=== PATIENT | female | born 1950 | race Caucasian/White ===

== ENCOUNTER 2024-07-29 15:41 | Emergency (ER) | payer OTHER, SELFPAY ==
--- NOTE | ~2024-07-29 | XR_ITS ---
EXAMINATION: XR chest 2V DATE: 07/29/2024 17:21 INDICATION: Productive cough TECHNIQUE: frontal and lateral views of the chest were obtained. COMPARISON: Chest radiograph dated 11/06/2012 FINDINGS: Pulmonary vascular congestion without leonard pulmonary edema. No focal airspace opacities, ulnar edema , pleural effusion or pneumothorax. Mild cardiomegaly. Dual lead pacemaker seen with leads projecting over the expected locations of the right atrium and right ventricle. Upper thoracic levoscoliosis. C holecystectomy clips in the right upper quadrant. IMPRESSION: 1. Cardiomegaly with pulmonary vascular congestion but without leonard pulmonary edema. Reviewed, dictated and finalized at location A. [facility]
[2024-07-29 15:54] VITALS: BP 160/95; PULSE 108; RESP 16; TEMP 36; O2SAT 97
--- NOTE | 2024-07-29 16:32 | ED_ITS ---
HPI - URI/Sore Throat General Chief Complaint: Upper Respiratory Infection Stated Complaint: Cough/Sinus Time Seen by Provider: 07/29/24 16:32 Source: patient, RN notes reviewed and old records reviewed Mode of arrival: ambulatory Limitations: no limitations History of Present Illness HPI Narrative: Patient presents with 2 week history of productive cough that is getting worse. She reports associated fatigue that she also feels is getting worse. She denies any shortness of breath. She reports that she has been taking multiple [id number] preparations with minimal relief. She denies any injury or trauma. She voices no other concerns or complaints at this time. Related Data Home Medications ?Medication ?Instructions ?Recorded ?Confirmed ?Last Taken ?Type amlodipine 2.5 mg tablet 2.5 mg PO DAILY 06/11/19 11/18/20 Unknown History aspirin 81 mg chewable tablet 81 mg PO DAILY 06/11/19 08/07/20 Unknown History cholecalciferol (vitamin D3) 125 5,000 unit PO DAILY 06/11/19 11/18/20 Unknown History mcg (5,000 unit) tablet (Vitamin D3) icosapent ethyl 1 gram capsule 2 g PO BID 06/11/19 11/18/20 Unknown History (Vascepa) lisinopril 40 mg tablet (Zestril) 40 mg PO DAILY 06/11/19 11/18/20 Unknown History lorazepam 1 mg tablet 1 mg PO TID PRN Anxiety 06/11/19 08/07/20 Unknown History vitamin E 268 mg (400 unit) capsule 400 unit PO DAILY 06/11/19 11/18/20 Unknown History apixaban 5 mg tablet (Eliquis) 5 mg PO BID 11/18/20 11/18/20 Unknown History icosapent ethyl 1 gram capsule 2 g PO BID 11/18/20 11/18/20 Unknown History (Vascepa) metoprolol succinate 50 mg 50 mg PO DAILY 11/18/20 11/18/20 Unknown History tablet,extended release 24 hr pantoprazole 40 mg tablet,delayed 40 mg PO QAM 11/18/20 11/18/20 Unknown History release Allergies Allergy/AdvReac Type Severity Reaction Status Date / Time alprazolam AdvReac Severe HURTS Verified 11/18/20 14:10 STOMACH codeine AdvReac Unknown HURT Verified 03/31/21 14:10 STOMACH PENTAZOCINE LACTATE AdvReac Severe HALUCINATIO Uncoded 08/07/20 14:22 NS Review of Systems Review of Systems: All systems reviewed & are unremarkable except as noted in HPI and below Constitutional: Constitutional: Reports no additional constitutional complaints ENT: Reports system reviewed and no additional complaints, except as documented Cardiovascular: Cardiovascular: Reports no additional cardiovascular complaints Respiratory: Respiratory: Reports no additional respiratory complaints, Reports chest congestion, Reports cough and Reports pain on inspiration Gastrointestinal: Gastrointestinal: Reports no additional gastrointestinal complaints [facility] Past Medical History Medical History Pacemaker Social History Social History Smoking status: Never smoker Alcohol intake: never Substance use: never Comments At the time of my signature, I reviewed and agree with the nursing past medical, surgical, social, and family history. There is no relevant family his tory pertinent to the patient complaint. Exam Const: General: cooperative, no acute distress, alert and awake Orientation/consciousness: oriented to person, oriented to place and oriented to time Limitations: no limitations HENMT: Head: normal to inspection Mouth: Yes moist mucous membranes Resp: Effort & Inspection: normal respiratory effort and able to speak in complete sentences Auscultation: crackles bilateral at the base, no rales, no rhonchi and no wheezes Cardio: Palpation: normal PMI Rate: regular rate Rhythm: regular rhythm Heart sounds: S1 normal heart sound present and S2 normal heart sound present Neuro: General: oriented to person, oriented to place and oriented to time Cranial nerves: Yes CN's II-XII intact bilaterally Psych: Appearance: grossly normal Thought process: Normal thought process present Insight: Good insight present (Psych) Judgement: Good judgement present (Psych) Course Course Level of Care: Express Care Visit Vital Signs Vital signs: Vital Signs Temperature 96.8 F L 07/29/24 15:54 Pulse Rate 108 H 07/29/24 15:54 Respiratory Rate 16 07/29/24 15:54 Blood Pressure 160/95 H 07/29/24 15:54 Pulse Oximetry 97 07/29/24 15:54 Oxygen Delivery Room Air 07/29/24 15:54 Temperature 96.8 F L 12/09/24 15:54 Pulse Rate 108 H 07/29/24 15:54 Respiratory Rate 16 07/29/24 15:54 Blood Pressure 160/95 H 07/29/24 15:54 Pulse Oximetry 97 07/29/24 15:54 Oxygen Delivery Room Air 07/29/24 15:54 Reviewed MDM - URI/Sore Throat MDM Narrative Medical decision making narrative: Discussed x-ray findings with patient. Suggested that she call her grinder hardboard to see if he would like to adjust any of her medications. She is advised to go to the emergency department with any new or worsening symptoms. Discharge instructions reviewed with patient, as well as provided in writing per nursing staff. The instructions also include specific and strict return/GO TO THE ER as well as f/u information. All questions have been answered, and the patient deny any further questions with discharge and discharge plan. Some parts of this dictation were generated by voice recognition software and may contain typographical and/or grammatical inaccuracies. Differential Diagnosis Differential diagnosis: Likely upper respiratory infection Medical Records Attestation: I reviewed the patient's medical records. Imaging Data Attestation: I personally reviewed and interpreted this imaging study as follows: My impression: [facility] Radiologist's impression: [facility] [address] [place] [address] XRay Report Signed Patient: Shira Denton : 1950 MR#: [id number] Age: 74 Acct:[id number] Loc: [facility] ADM Date: 07/29/24Attending Dr: Ordering Physician: Angeles Lux FNP Date of Service: 07/29/24 Procedure(s): XR chest 2V Accession Number(s): [id number] cc: Angeles Lux FNP; Sarwat, Juan Carlos Salazar MD~ EXAMINATION: XR chest 2V DATE: 07/29/2024 17:21 INDICATION: Productive cough TECHNIQUE: frontal and lateral views of the chest were obtained. COMPARISON: Chest radiograph dated 11/06/2012 FINDINGS: Pulmonary vascular congestion without leonard pulmonary edema. No focal airspace opacities, ulnar edema, pleural effusion or pneumothorax. Mild cardiomegaly. Dual lead pacemaker seen with leads projecting over the expected locations of the right atrium and right ventricle. Upper thoracic levoscoliosis. Cholecystectomy clips in the right upper quadrant. IMPRESSION: 1. Cardiomegaly with pulmonary vascular congestion but without leonard pulmonary edema. Reviewed, dictated and finalized at location [facility]. [employer] Dictated By: Jordy Fan MD 07/29/24 1722 Signed By: <Electronically signed by Jordy Fan MD in [place]> Discharge Plan Discharge Clinical Impression: Pulmonary vascular congestion Patient Disposition: Home, Self-Care Condition: Stable Instructions: Antibiotic Form, Heart Failure (ED), Low-Sodium Diet (ED) Additional Instructions: Call your grinder hardboard and explain your symptoms. Emergency department immediately with new or worse symptoms Patient Language: Andorran Prescriptions: No Action amlodipine 2.5 mg Tablet 2.5 mg PO DAILY aspirin 81 mg Tablet,Chewable 81 mg PO DAILY lorazepam 1 mg Tablet 1 mg PO TID PRN (Reason: Anxiety) lisinopril [Zestril] 40 mg Tablet 40 mg PO DAILY vitamin E 400 unit Capsule 400 unit PO DAILY cholecalciferol (vitamin D3) [Vitamin D3] 5,000 unit Tablet 5,000 unit PO DAILY icosapent ethyl [Vascepa] 1 gram Capsule 2 g PO BID metoprolol succinate 50 mg tablet extended release 24 hr 50 mg PO DAILY pantoprazole 40 mg tablet,delayed release (DR/EC) 40 mg PO QAM icosapent ethyl [Vascepa] 1 gram capsule 2 g PO BID Eliquis 5 mg tablet 5 mg PO BID Follow-up/Referrals: Sarwat,Juan Carlos Adams MD [Primary Care Provider] - 1 Day Time of Disposition: 17:50
== END 2024-07-29 17:57 | disposition home or self-care (01) ==
PROVIDERS: Emergency Provider Nurse Practitioner Family; PCP Family Medicine
DX: R09.89 Other specified symptoms and signs involving the circulatory and respiratory systems (principal); Z95.0 Presence of cardiac pacemaker; Z79.82 Long term (current) use of aspirin
CPT/HCPCS: 71046; 99203; G0463